=== PATIENT | female | born 1985 | race Asian ===

== ENCOUNTER 2017-02-06 21:37 | Inpatient (IN) | payer OTHER ==
[~2017-02-06] VITALS: Ht 157.5 cm; Wt 56.8 kg
[2017-02-06 22:19] VITALS: BP 120/79; PULSE 85; TEMP 98.4
[2017-02-06] MEDS ORDERED: PRENATAL FORMU1 EAC3 (22:26)
[2017-02-07] VITALS (66 sets, daily range): BP systolic 81–127; BP diastolic 52–95; PULSE 59–106; TEMP 97.3–99.3
[2017-02-07 03:53] LABS: BASO % 0.5 % (0.0-2.0); EOS % 0.2 % (0-4.0); GRAN # 6.7 (1.4-6.5); GRAN % 75.9 % (42.2-75.2); LYMPH # 1.4 (1.2-3.4); LYMPH % 15.3 % (20.0-51.0); MEAN CELL VOLUME 99 fl (80.0-100.0); MEAN CORPUSCULAR HGB CONC 34 g/dl (33.0-37.0); MEAN PLATELET VOLUME 11.9 fl (7.4-10.4); MONO # 0.7 (0.1-0.6); MONO % 7.6 % (1.7-9.3); PLATELET COUNT 153 K/mm3 (130-400); RED BLOOD COUNT 3.46 M/mm3 (4.10-5.30); REDCELL DISTRIBUTION WIDTH-CV 12.8 % (11.5-14.5); WHITE BLOOD COUNT 8.9 K/mm3 (4.8-10.8)
[2017-02-07 03:54] LABS: HEMATOCRIT 34.4 % (37.0-47.0); HEMOGLOBIN 11.8 g/dl (12.5-16.0); MEAN CORPUSCULAR HEMOGLOBIN 34 pg (27.0-31.0)
[2017-02-08 02:27] VITALS: BP 117/54; PULSE 77; TEMP 98.4
[2017-02-08 05:30] VITALS: BP 120/53; PULSE 78; TEMP 98.4
[2017-02-08 09:00] VITALS: BP 120/62; PULSE 88; TEMP 98.1
[2017-02-08 10:42] LABS: BASO % 0.3 % (0.0-2.0); EOS % 0.2 % (0-4.0); GRAN # 7.7 (1.4-6.5); GRAN % 84.1 % (42.2-75.2); LYMPH # 0.9 (1.2-3.4); LYMPH % 9.3 % (20.0-51.0); MEAN CELL VOLUME 100 fl (80.0-100.0); MEAN CORPUSCULAR HGB CONC 34 g/dl (33.0-37.0); MEAN PLATELET VOLUME 10.9 fl (7.4-10.4); MONO # 0.5 (0.1-0.6); MONO % 5.4 % (1.7-9.3); PLATELET COUNT 123 K/mm3 (130-400); RED BLOOD COUNT 3.15 M/mm3 (4.10-5.30); REDCELL DISTRIBUTION WIDTH-CV 12.9 % (11.5-14.5); WHITE BLOOD COUNT 9.1 K/mm3 (4.8-10.8)
[2017-02-08 10:48] LABS: HEMATOCRIT 31.4 % (37.0-47.0); HEMOGLOBIN 10.7 g/dl (12.5-16.0); MEAN CORPUSCULAR HEMOGLOBIN 34 pg (27.0-31.0)
[2017-02-08 16:00] VITALS: BP 112/68; PULSE 88; TEMP 98.2
[2017-02-08 20:30] VITALS: BP 106/73; PULSE 75; TEMP 97.9
[2017-02-09 09:45] VITALS: BP 90/68; PULSE 88; TEMP 98.6
[2017-02-09] MEDS ORDERED: IBU600 MG PO (12:34)
[2017-02-09] MEDS ORDERED: PERCOCET 325 MG1 TA2 PO (12:34)
== END 2017-02-09 18:15 | disposition home or self-care (01) | DRG 766 ==
LOC: LDRO 21:37 → LDR 22:43 → OB 02-08 08:00
PROVIDERS: Obstetrics & Gynecology; Student in an Organized Health Care Education/Training Program
PROC: 10D00Z1 Extraction of Products of Conception, Low, Open Approach (ICD-10-PCS; principal; 2017-02-07)
PROC: 3E0P3VZ Introduction of Hormone into Female Reproductive, Percutaneous Approach (ICD-10-PCS; 2017-02-07)
DX: O48.0 Post-term pregnancy (principal); O69.81X0 Labor and delivery complicated by cord around neck, without compression, not applicable or unspecified; O64.0XX0 Obstructed labor due to incomplete rotation of fetal head, not applicable or unspecified; O76 Abnormality in fetal heart rate and rhythm complicating labor and delivery; Z3A.40 40 weeks gestation of pregnancy; Z37.0 Single live birth
CPT/HCPCS: J0690; J1200; J1885; J2270; J2405; J2590; J7120

== ENCOUNTER → 2017-03-19 | Outpatient (CLI) | payer OTHER ==
[~2017-03-19] MED LIST: IBU600 MG PO; PERCOCET 325 MG1 TA2 PO; PRENATAL FORMU1 EAC3
== END ==
LOC: COL.RAD 12:30
DX: G93.5 Compression of brain (principal); G95.0 Syringomyelia and syringobulbia

== ENCOUNTER → 2017-05-15 | Outpatient (CLI) | payer OTHER | LOC: LAC 13:38 | DX: Z39.1 Encounter for care and examination of lactating mother (principal); Z71.89 Other specified counseling ==